=== PATIENT | male | born 1955 ===

== ENCOUNTER 2023-01-02 07:56 | Outpatient (AMB) | payer MEDICARE, SELFPAY ==
--- NOTE | 2023-01-02 08:06 | A.OFFVIS_ITS ---
Intake Vital Signs 01/02/23 08:16 Height 5 ft 8 in Weight 246 lb 8 oz BMI 37.5 BP 130/80 Pulse 59 Pulse Source Pulse Oximeter Pulse Oximetry (%) 96 Oxygen Delivery Method Room Air Intake Visit Reasons: ENP-Hay on CPAP Intake Note: F/U HAY [employer] Estimator Required: No Allergies No Known Allergies Allergy (Verified 01/02/23 08:10) HPI HPI Comments History of Present Illness Details 67 y/o male patient with HTN, DM, HAY on CPAP presents for new in- person visit to manage HAY. Pt reports that he was diagnosed with HAY in 2011 and started CPAP. Pt has been using his original CPAP and no repeat sleep study done. He was followed by [facility], and the last follow up was 2019. Pt reports that his original CPAP was broken 2 months ago, and can't use it. He has difficulty sleeping without CPAP, he wakes up almost every 3 hours. He was doing well with CPAP. Pt reports loud snoring, gasping arousals, and non refreshing sleep. He feels tired all day and easily falling asleep during daytime. Sleep questionnaire: Have you ever been diagnosed with a sleep disorder? HAY. Have you ever had a sleep study in the past? Yes, 2011. Have you ever been treated for a sleep disorder? Yes, with CPAP. Do you take medications for a sleep disorder? No. Do you snore? Yes. Do you wake up gasping at night? Yes. Do you have episodes of apneas? Yes. If yes, are they witnessed? Yes. Do you have episodes of nocturnal chest pain or dyspnea? Yes, shortness of breath. Do you have difficulty initiating sleep? No. Do you have difficulty maintaining sleep? Yes. Do you wake up tired? Yes. Do you have headaches upon awakening? No. Do you wake up with dry mouth or throat? Yes. Do you have GERD? No. Do you have nocturia? No. Do you have nocturnal leg cramps? No. Do you have symptoms of restless legs? No. Do you act out your dreams? No. Sleep hygiene questionnaire: What is your usual sleep routine? Usual bedtime is at 10 pm; Usual wake up time is at 3 am. Do you take naps? No. Is your sleep environment cool, dark, and quiet? Yes. Do you exercise? No. Do you take caffeine or other stimulants? No. Do you use electronics in bed? Yes. What is your work schedule? N/A. Hypersomnolence questionnaire: Do you have daytime tiredness or fatigue? Yes. Do you easily fall asleep when inactive? Yes. Have you ever had episodes of sudden weakness? No. Have you ever had episodes of sudden weakness associated with strong emotions? No. [place] sleepiness scale: Plan: Pt is advised to undergo sleep study to assess for sleep apnea: Will f/u with pt after study to discuss results and appropriate treatment options. Pt to call with any worsening concerns or questions. [facility] Medical History (Updated 01/02/23 @ 08:42 by Jaleesa Mitchell CNP) GERD (gastroesophageal reflux disease) HLD (hyperlipidemia) Neuropathy Family History (Updated 01/02/23 @ 08:15 by Dipika Huitron CMA) Father Cancer Mother Diabetes Social History (Updated 01/02/23 @ 08:16 by Dipika Huitron CMA) Alcohol intake: current Alcohol intake frequency: holidays/special occasions only Patient Tobacco Use Status: Never used Tobacco Use of substances other than those prescribed or required for medical reasons: No Review of Systems Const All systems reviewed & are unremarkable except as noted in HPI and below ENT Reports Normal hearing present Neuro Reports Normal hearing present Physical Exam Vital Signs: Last Vital Signs Pulse 59 01/02/23 08:16 BP 130/80 01/02/23 08:16 Pulse Ox 96 01/02/23 08:16 Oxygen Delivery Method Room Air 01/02/23 08:16 BMI result Body Mass Index 37.5 Const General: cooperative and tired appearing Nutritional Appearance: obese Orientation/consciousness: patient oriented x3 Limitations: ambulation with cane HEENT Throat: Yes other (mallampati grade 3) Neck Neck: Yes full ROM and Yes supple Resp Effort & Inspection: normal respiratory effort and able to speak in complete sentences Neuro General: patient oriented x3, moves all extremities and no focal motor deficits Cranial nerves: Yes Bilaterally intact EOM present, Yes Normal facial strength present, Yes Midline tongue present, Yes Symmetric palate elevation present, Yes Normal hearing present and Yes Ability to bilaterally rotate head present Cognition (Neuro): normal cognition Gait exam (Neuro): Assisted gait required Psych Appearance: grossly normal Mental Status: mental status grossly normal Affect: normal affect Attitude: cooperative Assessment & Plan Assessment & Plan (1) T2DM (type 2 diabetes mellitus): Code(s): E11.9 - Type 2 diabetes mellitus without complications (2) HTN (hypertension): Code(s): I10 - Essential (primary) hypertension (3) HAY on CPAP: Code(s): G47.33 - Obstructive sleep apnea (adult) (pediatric) Plan Pt is advised to undergo in lab sleep study to assess for sleep apnea. Will f/u with pt after study to discuss results and appropriate treatment options. Sleep hygiene education provided, and encouraged patient to increase physical activity. Wt reduction advised. Pt to call with any worsening concerns or questions. Orders: Orders RT PSG in-lab sleep study Today E11.9 - Type 2 diabetes mellitus without complications, E66.9 - Obesity, unspecified, G47.33 - Obstructive sleep apnea (adult) (pediatric), I10 - Essential (primary) hypertension Coding Level of Care Code New Pt Level 4 (23424) Diagnoses T2DM (type 2 diabetes mellitus) E11.9 HTN (hypertension) I10 HAY on CPAP G47.33
[2023-01-02 08:16] VITALS: BP 130/80; PULSE 59; O2SAT 96; BMI 37.5
== END 2023-01-02 08:52 | disposition home or self-care (01) ==
PROVIDERS: PCP Internal Medicine; Visit Provider Nurse Practitioner Family
DX: E11.9 Type 2 diabetes mellitus without complications (principal); I10 Essential (primary) hypertension; G47.33 Obstructive sleep apnea (adult) (pediatric)
CPT/HCPCS: 99204

== ENCOUNTER → 2023-01-02 07:56 | Outpatient (BNVA) | payer MEDICARE, SELFPAY | PROVIDERS: PCP Internal Medicine; Visit Provider Nurse Practitioner Family | DX: G47.33 Obstructive sleep apnea (adult) (pediatric) (principal); E11.9 Type 2 diabetes mellitus without complications; I10 Essential (primary) hypertension; Z99.89 Dependence on other enabling machines and devices | CPT/HCPCS: 99202 ==

== ENCOUNTER → 2023-01-17 20:30 | Outpatient (REF) | payer MEDICARE, SELFPAY | LOC: HO.SL 20:30 | PROVIDERS: Visit Provider Nurse Practitioner Family | DX: G47.33 Obstructive sleep apnea (adult) (pediatric) (principal) | CPT/HCPCS: 95810 ==

== ENCOUNTER → 2023-01-17 22:47 | Outpatient (BNV) | payer MEDICARE, SELFPAY | PROVIDERS: Visit Provider Psychiatry & Neurology Neurology | DX: G47.33 Obstructive sleep apnea (adult) (pediatric) (principal) | CPT/HCPCS: 95810 ==

== ENCOUNTER 2023-02-28 11:28 | Outpatient (AMB) | payer MEDICARE, SELFPAY ==
--- NOTE | 2023-02-28 11:46 | MHC.OFFVIS ---
Intake Vital Signs 02/28/23 11:47 Height 5 ft 8 in Weight 246 lb BMI 37.4 Pulse 77 Pulse Source Pulse Oximeter Pulse Oximetry (%) 93 Oxygen Delivery Method Room Air Intake Visit Reasons: 4m f/u-Hay on CPAP Intake Note: Patient presents for 4 month follow up HAY. Patient states I'm here to follow up I have not received my machine yet Allergies No Known Allergies Allergy (Verified 02/28/23 11:49) HPI HPI Comments History of Present Illness Details 67 y/o male patient presents for follow up of sleep study. Pt underwent split night sleep study. The baseline portion of the study was significant for severe degree of sleep apnea. The AHI was 39/hr and oxygen jose was 79%. Pt was trialled CPAP 4-9 and breathing and oxygenation stabilized with all the pressure. CPAP 9cmH2O ordered to [facility], but patient states that he has not a phone call from [facility]. Found that he needs to pay some deposit. His original CPAP was broken, and his home care was [facility]. Pt wants to resend the CPAP prescription to [facility]. [facility] Medical History (Updated 01/02/23 @ 08:42 by Jaleesa Mitchell CNP) Neuropathy GERD (gastroesophageal reflux disease) HLD (hyperlipidemia) Family History Father Cancer Mother Diabetes Social History (Updated 01/02/23 @ 08:16 by Dipika Huitron CMA) Alcohol intake: current Alcohol intake frequency: holidays/special occasions only Patient Tobacco Use Status: Never used Tobacco Review of Systems Const All systems reviewed & are unremarkable except as noted in HPI and below ENT Reports Normal hearing present Neuro Reports Normal hearing present Physical Exam Vital Signs: Last Vital Signs Pulse 77 02/28/23 11:47 Pulse Ox 93 02/28/23 11:47 Oxygen Delivery Method Room Air 02/28/23 11:47 BMI result Body Mass Index 37.4 Const General: cooperative and tired appearing Nutritional Appearance: obese Orientation/consciousness: patient oriented x3 Limitations: ambulation with cane HEENT Throat: Yes other (mallampati grade 3) Neck Neck: Yes full ROM and Yes supple Resp Effort & Inspection: normal respiratory effort and able to speak in complete sentences Neuro General: patient oriented x3, moves all extremities and no focal motor deficits Cranial nerves: Yes Bilaterally intact EOM present, Yes Normal facial strength present, Yes Midline tongue present, Yes Symmetric palate elevation present, Yes Normal hearing present and Yes Ability to bilaterally rotate head present Cognition (Neuro): normal cognition Gait exam (Neuro): Assisted gait required Psych Appearance: grossly normal Mental Status: mental status grossly normal Affect: normal affect Attitude: cooperative Assessment & Plan Assessment & Plan (1) HAY on CPAP: Code(s): G47.33 - Obstructive sleep apnea (adult) (pediatric) Plan Resend the prescription to [facility]. Advised patient to start CPAP at 9cmH2O. Stressed compliance, use CPAP nightly and more than 4 hrs. Wt reduction advised. Coding Level of Care Code Est Pt Level 3 (43163) Diagnoses HAY on CPAP G47.33
[2023-02-28 11:47] VITALS: PULSE 77; O2SAT 93; BMI 37.4
== END 2023-02-28 12:01 | disposition home or self-care (01) ==
PROVIDERS: PCP Internal Medicine; Visit Provider Nurse Practitioner Family
DX: G47.33 Obstructive sleep apnea (adult) (pediatric) (principal)
CPT/HCPCS: 99213

== ENCOUNTER → 2023-02-28 11:28 | Outpatient (BNVA) | payer MEDICARE, SELFPAY | PROVIDERS: PCP Internal Medicine; Visit Provider Nurse Practitioner Family | DX: G47.33 Obstructive sleep apnea (adult) (pediatric) (principal) | CPT/HCPCS: 99212 ==

== ENCOUNTER 2023-07-03 11:00 | Outpatient (AMB) | payer MEDICARE, SELFPAY ==
--- NOTE | 2023-07-03 11:06 | A.OFFVIS_ITS ---
Intake Vital Signs 07/03/23 11:11 Height 5 ft 8 in Weight 247 lb 2 oz BMI 37.6 BP 122/70 Blood Pressure Location Lt brachial Position Sitting Pulse 64 Pulse Source Pulse Oximeter Pulse Oximetry (%) 96 Oxygen Delivery Method Room Air Intake Visit Reasons: 4m f/u-Hay on CPAP-Confirmed Intake Note: Patient presents for 4 month f/u. Allergies No Known Allergies Allergy (Verified 07/03/23 11:10) HPI HPI Comments History of Present Illness Details 67 y/o male patient presents for follow up of HAY on CPAP. Pt underwent split night sleep study. The baseline portion of the study was significant for severe degree of sleep apnea. The AHI was 39/hr and oxygen jose was 79%. Pt was trialled CPAP 4-9 and breathing and oxygenation stabilized with all the pressure. Pt started CPAP at 9cmH2O. The CPAP compliance and therapy response (04/03/23-07/01/23) reviewed. The usage days 98% and the average usage hours 8 hrs. The residual AHI was 2.7/hr. Pt reports he sleeps well for 8 hrs, not waking up in the middle of night. He wakes up refreshed and daytime tiredness has improved a lot. [facility] Medical History (Updated 01/02/23 @ 08:42 by Jaleesa Mitchell CNP) Neuropathy GERD (gastroesophageal reflux disease) HLD (hyperlipidemia) Family History Father Cancer Mother Diabetes Social History Alcohol intake: current Alcohol intake frequency: holidays/special occasions only Patient Tobacco Use Status: Never used Tobacco Review of Systems Const All systems reviewed & are unremarkable except as noted in HPI and below ENT Reports Normal hearing present Neuro Reports Normal hearing present Physical Exam Vital Signs: Last Vital Signs Pulse 64 07/03/23 11:11 BP 122/70 07/03/23 11:11 Pulse Ox 96 07/03/23 11:11 Oxygen Delivery Method Room Air 07/03/23 11:11 BMI result Body Mass Index 37.6 Const General: cooperative Nutritional Appearance: obese Orientation/consciousness: patient oriented x3 Limitations: ambulation with cane HEENT Throat: Yes other (mallampati grade 3) Neck Neck: Yes full ROM and Yes supple Resp Effort & Inspection: normal respiratory effort and able to speak in complete sentences Neuro General: patient oriented x3, moves all extremities and no focal motor deficits Cranial nerves: Yes Bilaterally intact EOM present, Yes Normal facial strength present, Yes Midline tongue present, Yes Symmetric palate elevation present, Yes Normal hearing present and Yes Ability to bilaterally rotate head present Cognition (Neuro): normal cognition Gait exam (Neuro): Assisted gait required Psych Appearance: grossly normal Mental Status: mental status grossly normal Affect: normal affect Attitude: cooperative Assessment & Plan Assessment & Plan (1) HAY on CPAP: Code(s): G47.33 - Obstructive sleep apnea (adult) (pediatric) Plan Continue to use CPAP at 9cmH2O as patient experiences good clinical effects, rested sleep, less snoring and daytime tiredness has improved. Stressed compliance, use CPAP nightly and more than 4 hrs. Coding Level of Care Code Est Pt Level 3 (36710) Diagnoses HAY on CPAP G47.33
[2023-07-03 11:11] VITALS: BP 122/70; PULSE 64; O2SAT 96; BMI 37.6
== END 2023-07-03 11:22 | disposition home or self-care (01) ==
PROVIDERS: PCP Internal Medicine; Visit Provider Nurse Practitioner Family
DX: G47.33 Obstructive sleep apnea (adult) (pediatric) (principal)
CPT/HCPCS: 99213

== ENCOUNTER → 2023-07-03 11:00 | Outpatient (BNVA) | payer MEDICARE, SELFPAY | PROVIDERS: PCP Internal Medicine; Visit Provider Nurse Practitioner Family | DX: G47.33 Obstructive sleep apnea (adult) (pediatric) (principal) | CPT/HCPCS: 99212 ==